=== PATIENT | female | born 2000 | race Caucasian/White ===

== ENCOUNTER → 2023-05-24 07:36 | Outpatient (REF) | payer OTHER, SELFPAY | LOC: EMG 07:36 | PROVIDERS: ATTENDING PHYSICIAN Family Medicine | DX: R20.2 Paresthesia of skin (principal) | CPT/HCPCS: 95886; 95911 ==

== ENCOUNTER 2023-06-02 16:11 | Emergency (ER) | payer OTHER, SELFPAY ==
[2023-06-02 16:13] VITALS: BP 132/81
[2023-06-02 16:35] LABS: % Basophils 0.6 % (0-2); % Eosinophils 1.2 % (0-6); % Immature Granulocytes 0.3 % (0-0.5); % Lymphocytes 36.5 % (20.5-51.1); % Monocytes 4.8 % (1.7-9.3); % Neutrophils 56.6 % (42.2-75.2); Absolute Basophils 0.1 10^3/uL (0-0.2); Absolute Eosinophils 0.1 10^3/uL (0-0.7); Absolute Lymphocytes 3.8 10^3/uL (1.2-3.4); Absolute Monocytes 0.5 10^3/uL (0.1-0.6); Absolute Neutrophils 5.9 10^3/uL (1.4-6.5); Hematocrit 38.2 % (37.0-47.0); Hemoglobin 12.8 g/dL (12.0-16.0); Mean Corp Hgb Conc. 33.5 g/dL (33.0-37.0); Mean Corpuscular Hgb 29.6 pg (27.0-31.0); Mean Corpuscular Volume 88.2 fL (81.0-99.0); Mean Platelet Volume 9.8 fL (7.4-10.4); Nucleated Red Blood Cells % 0 %; Platelet Count 334 10^3/uL (130-400); Red Blood Cell Count 4.33 10^6/uL (4.20-5.40); White Blood Cell Count 10.3 10^3/uL (4.8-10.8)
[2023-06-02 16:53] LABS: HCG, Serum Qualitative Screen Negative
[2023-06-02 16:58] LABS: ALT (SGPT) 14 U/L (0-35); AST (SGOT) 21 U/L (14-36); Alkaline Phosphatase 58 U/L (38-126); Blood Urea Nitrogen 13 mg/dl (7-17); Calcium 9.8 mg/dl (8.4-10.2); Carbon Dioxide 25 mmol/L (22-30); Chloride 104 mmol/L (98-107); Glucose 92 mg/dl (70-99); Potassium 4.4 mmol/L (3.5-5.1); Sodium 137 mmol/L (135-145); Total Bilirubin 0.5 mg/dl (0.2-1.3); Total Protein 7.7 g/dl (6.3-8.2); eGFR > 60.00
[2023-06-02 17:00] LABS: Troponin I < 0.012 ng/ml
[2023-06-02 18:00] VITALS: BP 129/81
--- NOTE | 2023-06-02 18:13 | ED.GENMED ---
History of Present Illness
General
Chief Complaint: Chest Pain
Time Seen by Provider: 06/02/23 18:00
Travel History
Have you had any contact with someone who has COVID-19?: No
Do you have any symptoms of coronavirus? Fever > 100 degrees, chills, cough, shortness of breath, sore throat, loss of taste or smell, muscle aches, or headache?: No
History of Present Illness
History of Present Illness:
23-year-old female with no significant past medical history presents to the emergency department for evaluation of chest discomfort for the past 3 to 4 days. Pain is nonpleuritic and nonpositional. Seems to be constant throughout the day. Pain is
nonradiating and centrally located. She does note that she had a viral URI 1 week ago. Also notes that she has had ongoing numbness of the hands and feet for the past month, did undergo an upper extremity EMG last week that was reportedly normal
and is scheduled for a brain MRI next month. She denies any leg swelling. Does not take any exogenous estrogen and denies any recent surgeries or prolonged immobilization/travel.
Review of Systems
Review of Systems
Allergies reviewed?: Yes
All Other Systems: ROS reviewed and negative except as documented in HPI and ROS
Phy Exam
Physical Exam
Physical Exam:
GEN: Well appearing, NAD, WDWN
HEENT: Oral mucosa moist, no scleral icterus, no nasal congestion
Cardiac: Regular rate and rhythm, no murmurs
Lung: No respiratory distress, no tachypnea, lungs clear to auscultation bilaterally
MSK: No gross deformity or injuries
Skin: Good color, no pallor or jaundice, no rashes
Neuro: AO x3, CN II-XII grossly intact. Visual childress intact x 4 bilat. No limb drift x 4. No limb ataxia x 4. No aphasia or dysarthria. Sensation intact x 4 extremities
Psych: Calm, cooperative
Scores
Heart Score for Chest Pain Patients
STEMI patient?: No
History: Slightly or Non-Suspicious
ECG: Normal
Age: </= 45 years
Risk Factors: No Risk Factors
Troponin: </= Normal Limit
Heart Score for Chest Pain Patients: 0
Heart Score Risk: 2.5% MACE over next 6 weeks
Course
Orders/Labs/Results
Orders:
Orders
06/02/23 16:13
Test Result ONCE
06/02/23 16:14
Electrocardiogram (*1) Urgent
Reason for Study: Chest Pain
EKG- Treatment ONCE
06/02/23 16:21
Complete Blood Count/With Diff Urgent
Comprehensive Metabolic Panel Urgent
HCG, Serum Qualitative Screen Urgent
Troponin I Urgent
Abnormal Lab Results
06/02/23
16:21
Absolute Lymphs (auto) 3.8 H 10^3/uL
(1.2-3.4)
Creatinine 0.5 L mg/dL
(0.6-1.0)
06/02/23 16:21
06/02/23 16:21
Vital Signs
Initial and Last Documented VS:
Initial Vital Signs
Temp Pulse Resp BP Pulse Ox
97.7 F 76 18 132/81 99
06/02/23 16:13 06/02/23 16:13 06/02/23 16:13 06/02/23 16:13 06/02/23 16:13
Last Documented Vital Signs
Temp Pulse Resp BP Pulse Ox
97.7 F 84 20 129/81 99
06/02/23 16:13 06/02/23 18:00 06/02/23 18:00 06/02/23 18:00 06/02/23 18:00
MDM/Problems Addressed
MDM/Problems Addressed:
Low suspicion for ACS given age and lack of risk factors. PE rule out criteria. Labs are reassuring, negative troponin is reassuring against postviral myocarditis. No positional pleuritic nature to suggest pericarditis. Psychosomatic versus
costochondritis in the setting of a recent URI, will start high-dose NSAIDs and recommend outpatient primary care follow-up
Comment
Comment:
EKG independently interpreted by me shows a normal sinus rhythm at a rate of [address] changes concerning for ischemia, QTc of 407
*Critical Care Note
Total Time (30-74mins, 75-104mins- exclusive of procedures): Not Applicable
ED Attending Note
-
Portions of this chart may have been created with voice recognition software.� Occasional wrong word or��sound alike� substitutions may have occurred due to the inherent limitations of voice recognition software.
Discharge Plan
Departure
Patient Disposition: Home (Routine Discharge)
Date of Disposition: 06/02/23
Time of Disposition: 18:15
Patient with high blood pressure during this ER visit?: No
Discharge Problem:
Atypical chest pain
Instructions: Chest Pain That Is Not Caused by the Heart (DC), Costochondritis (DC)
Prescriptions:
New
diclofenac sodium 75 mg tablet,delayed release (DR/EC)
75 mg PO BID Qty: 20 0RF
No Action
cephalexin 500 mg capsule
500 mg PO TID 7 Days Qty: 21 0RF
Referrals:
Jaret Ley DO [Family Provider] -
Interventions
Interventions:
*Risk Screen - Suicide Last Done: 06/02/23 16:13
*General Assessment Last Done: 06/02/23 16:13
*Neglect/Abuse Screening Last Done: 06/02/23 16:13
*ED COVID-19 Vaccine History Last Done: 06/02/23 16:13
*Nursing Disposition Last Done: 06/02/23 18:28
ED- Cardiac Assessment Last Done: 06/02/23 18:00
Discharge Date and Time
Discharge Date/Time: 06/02/23 18:28
Print Language: ITALIAN
== END 2023-06-02 18:28 | disposition home or self-care (01) ==
LOC: EMR 16:11
PROVIDERS: EMERGENCY PHYSICIAN Student in an Organized Health Care Education/Training Program; FAMILY PHYSICIAN Family Medicine
DX: R07.89 Other chest pain (principal); R20.0 Anesthesia of skin
CPT/HCPCS: 99284; 80053; 84484; 84703; 85025; 93005

== ENCOUNTER → 2023-06-06 07:36 | Outpatient (REF) | payer OTHER, SELFPAY | LOC: EMG 07:36 | PROVIDERS: ATTENDING PHYSICIAN Family Medicine | DX: R20.0 Anesthesia of skin (principal) | CPT/HCPCS: 95886; 95910 ==

== ENCOUNTER → 2023-06-16 19:24 | Outpatient (REF) | payer OTHER, SELFPAY | LOC: MRI 19:24 | PROVIDERS: ATTENDING PHYSICIAN Family Medicine | DX: R20.2 Paresthesia of skin (principal) | CPT/HCPCS: 70553; A9575 ==

== ENCOUNTER 2023-07-13 07:48 | Outpatient (RCR) | payer OTHER, SELFPAY ==
[2023-06-22 07:50] VITALS: BP 105/65
[2023-06-22] MEDS: VENOFER 110 MG IV (08:05)
[2023-06-22 09:13] VITALS: BP 117/63
[2023-06-29 13:51] VITALS: BP 114/70
[2023-06-29] MEDS: VENOFER 110 MG IV (14:03)
[2023-06-29 15:16] VITALS: BP 116/68
[2023-07-03 08:10] VITALS: BP 108/70
[2023-07-03] MEDS: VENOFER 110 MG IV (08:19)
[2023-07-03 09:30] VITALS: BP 118/63
[2023-07-13] MEDS: VENOFER 110 MG IV (08:25)
[2023-07-13 08:29] VITALS: BP 106/67
[2023-07-13 09:50] VITALS: BP 113/66
== END 2023-07-14 08:46 | disposition home or self-care (01) ==
LOC: OID 07:48
PROVIDERS: ATTENDING PHYSICIAN Nurse Practitioner Family; FAMILY PHYSICIAN Family Medicine
DX: D50.9 Iron deficiency anemia, unspecified (principal); E61.1 Iron deficiency; R20.2 Paresthesia of skin; Z87.820 Personal history of traumatic brain injury
CPT/HCPCS: 96365; J1756

== ENCOUNTER 2023-07-17 07:43 | Outpatient (RCR) | payer OTHER, SELFPAY ==
[2023-07-17] MEDS: VENOFER 110 MG IV (08:16)
[2023-07-17 08:22] VITALS: BP 107/62
[2023-07-17 09:30] VITALS: BP 96/65
== END 2023-07-18 08:22 | disposition home or self-care (01) ==
LOC: OID 07:43
PROVIDERS: ATTENDING PHYSICIAN Nurse Practitioner Family; FAMILY PHYSICIAN Family Medicine
DX: D50.9 Iron deficiency anemia, unspecified (principal); E61.1 Iron deficiency; R20.2 Paresthesia of skin; Z87.820 Personal history of traumatic brain injury
CPT/HCPCS: 96365; J1756

== ENCOUNTER → 2023-08-14 08:05 | Outpatient (REF) | payer OTHER, SELFPAY | LOC: RCS 08:05 | PROVIDERS: ATTENDING PHYSICIAN Internal Medicine Cardiovascular Disease; FAMILY PHYSICIAN Family Medicine | DX: R07.89 Other chest pain (principal) | CPT/HCPCS: 93306 ==

== ENCOUNTER 2023-09-19 10:42 | Emergency (ER) | payer OTHER, SELFPAY ==
[2023-09-19 10:58] VITALS: BP 116/80
[2023-09-19 12:05] VITALS: BP 106/69
[2023-09-19] MEDS: NSS 1000 IV (12:15)
[2023-09-19 12:18] VITALS: BMI 27.7
--- NOTE | 2023-09-19 12:22 | ED.GENMED ---
History of Present Illness
General
Chief Complaint: Abdominal Pain
Source: patient
Exam Limitations: none
Time Seen by Provider: 09/19/23 11:32
Nursing documentation reviewed up to this point in time: agreed with
History of Present Illness
History of Present Illness:
Patient is a 23-year-old female who presents to the ER for right-sided abdominal pain. She has had intermittent right-sided abdominal pain for the past 1 month. She was seen by her family doctor today who was concerned about appendicitis and sent
here for CAT scan. She reports she has had issues with her stomach for the past 7 months including mucousy stools. For this she has an appointment with GI at the end of the month(Oct 09)
She denies any fever or chills. She has had nausea with this right-sided abdominal pain. She also has had some issues with constipation
Review of Systems
Review of Systems
Allergies reviewed?: Yes
All Other Systems: ROS reviewed and negative except as documented in HPI and ROS
Constitutional: Reports no symptoms; Denies fever, fatigue or chills
Cardiac: Reports no symptoms
ABD/GI: Reports abdominal pain, nausea and other (Mucousy stools for past 7 months )
Skin: Reports no symptoms
Neurological: Reports no symptoms
Psychiatric: Reports no symptoms
Phy Exam
General Physical Exam
General Presentation: no apparent distress
General age: appears stated age
General Skin: warm and dry
General Habitus: normal
General Mental: alert
General Hydration: appears well hydrated
Gastrointestinal Exam
Gastrointestinal Exam: soft and other (Mild right-sided upper mid and lower tenderness no guarding/ rebound)
Neurological Exam
Neurological Exam: alert and oriented x3
Musculoskeletal Exam
Musculoskeletal Exam: full ROM
Skin Exam
Skin Exam: normal color and warm/dry
Psychiatric Exam
Psychiatric Exam: normal mood/affect
Course
Orders/Labs/Results
Orders:
Orders
09/19/23 12:06
IV Insert/Care/Rem.- Treatment PRN
0.9% Sodium Chloride 1000 ml [Nss] 1,000 ml IV BOLUS
09/19/23 12:07
Test Result ONCE
09/19/23 12:08
CT Abd/Pel (IV only)-DH only Urgent
Comment:
Reason For Exam: r sided abd pain
09/19/23 12:14
Complete Blood Count/With Diff Urgent
Comprehensive Metabolic Panel Urgent
HCG, Serum Qualitative Screen Urgent
Lipase Urgent
09/19/23 14:40
US Pelvis Only (non-obstetric) Urgent
Comment:
Reason For Exam: rlq pain
09/19/23 14:56
Urinalysis Reflex To Culture Urgent
Date Specimen was Collected: 09/19/23
Time Specimen was Collected: 14:55
Abnormal Lab Results
09/19/23
12:14
RBC 4.05 L 10^6/uL
(4.20-5.40)
Hct 34.2 L %
(37.0-47.0)
Chloride 110 H mmol/L
(98-107)
Carbon Dioxide 17 L mmol/L
(22-30)
09/19/23 12:14
09/19/23 12:14
Vital Signs
Initial and Last Documented VS:
Initial Vital Signs
Temp Pulse Resp BP Pulse Ox
98.9 F 79 18 116/80 96
09/19/23 10:58 09/19/23 10:58 09/19/23 10:58 09/19/23 10:58 09/19/23 10:58
Last Documented Vital Signs
Temp Pulse Resp BP Pulse Ox
98.9 F 65 16 107/67 98
09/19/23 10:58 09/19/23 14:32 09/19/23 14:32 09/19/23 14:32 09/19/23 14:32
MDM/Problems Addressed
Differential Diagnosis Includes:
Not limited to biliary colic, constipation, less likely appendicitis ovarian cyst
MDM/Problems Addressed:
Patient is a 23-year-old female who was sent by her family doctor for evaluation of right side abdominal pain right lower quadrant rule out appendicitis. Patient had issues with right-sided abdominal pain for the past 1 month. She does have some
intermittent constipation and also for the past 7 months has had issues with mucousy stools. For this she does have a GI appointment scheduled October 09 patient. Patient presents awake alert no acute distress denies any fever she is afebrile with
a stable hemoglobin normal labs including normal chemistries normal lipase. No UTI symptoms. UA negative normal LFTs
CAT scan of the abdomen shows small amount of fluid in the pelvis of uncertain etiology and ovarian cyst cannot be excluded although findings are consistent with constipation. Ultrasound was done which does show free fluid in the pelvis likely
related to recently ruptured cyst that is otherwise unremarkable with no mass or fluid collection. No acute abnormality with gallbladder
Patient has appointment with GI coming up October 09 I discussed constipation and results of imaging including likely recent ovarian cyst discussed follow-up with GI as scheduled family doctor or [facility] as needed patient no acute distress nontoxic looks
well stable for discharge home.
*Radiology
Radiology exam reviewed: radiology read reviewed (Resolvent of fluid in the pelvis of uncertain etiology, much stool in the colon suggesting constipation)
*Critical Care Note
Total Time (30-74mins, 75-104mins- exclusive of procedures): Not Applicable
ED Attending Note
-
Portions of this chart may have been created with voice recognition software.� Occasional wrong word or��sound alike� substitutions may have occurred due to the inherent limitations of voice recognition software.
Discharge Plan
Departure
Patient Disposition: Home (Routine Discharge)
Date of Disposition: 09/19/23
Time of Disposition: 16:05
Patient with high blood pressure during this ER visit?: No
Condition: Fair
Covid-19: Not Applicable
Discharge Problem:
Constipation
Instructions: Constipation, Adult (DC), Abdominal Pain
Prescriptions:
No Action
lamotrigine 25 mg Tablet
75 mg PO BID
ascorbic acid (vitamin C) [Vitamin C] 500 mg Tablet
500 mg PO DAILY
rizatriptan 10 mg Tablet,Disintegrating
0 mg PO .COMPLEX
Rx Instructions:
take 1 tab at onset of headache; if no relief may repeat 1 tab after at least 2 hrs; max = 3 tabs/24 hr
topiramate 50 mg Tablet
50 mg PO BID
Referrals:
Jaret Ley DO [Family Provider] -
Activity Restrictions/Additional Instructions:
As discussed your CAT scan shows constipation you may take MiraLAX daily be sure to increase water intake and fresh fruits high in fiber.
Your ultrasound shows findings consistent with recently ruptured cyst. Follow-up with your family doctor in the next several days and GI specialist as scheduled. Also follow-up with gynecology as needed. Return if any worsening of symptoms
Interventions
Interventions:
*Risk Screen - Suicide Last Done: 09/19/23 10:59
*General Assessment Last Done: 09/19/23 10:59
*Neglect/Abuse Screening Last Done: 09/19/23 10:59
ED- Fall Risk Assessment Last Done: 09/19/23 12:19
*ED COVID-19 Vaccine History Last Done: 09/19/23 11:23
AS-Kahvyp-Ffxyzicntn Assessment Last Done: 09/19/23 12:18
Discharge Date and Time
Print Language: PAKISTANI
[2023-09-19 12:28] LABS: % Basophils 0.7 % (0-2); % Eosinophils 1.1 % (0-6); % Immature Granulocytes 0.2 % (0-0.5); % Lymphocytes 33.7 % (20.5-51.1); % Monocytes 5.1 % (1.7-9.3); % Neutrophils 59.2 % (42.2-75.2); Absolute Basophils 0.1 10^3/uL (0-0.2); Absolute Eosinophils 0.1 10^3/uL (0-0.7); Absolute Lymphocytes 2.7 10^3/uL (1.2-3.4); Absolute Monocytes 0.4 10^3/uL (0.1-0.6); Absolute Neutrophils 4.8 10^3/uL (1.4-6.5); Hematocrit 34.2 % (37.0-47.0); Hemoglobin 12.1 g/dL (12.0-16.0); Mean Corp Hgb Conc. 35.4 g/dL (33.0-37.0); Mean Corpuscular Hgb 29.9 pg (27.0-31.0); Mean Corpuscular Volume 84.4 fL (81.0-99.0); Mean Platelet Volume 10.1 fL (7.4-10.4); Nucleated Red Blood Cells % 0 %; Platelet Count 266 10^3/uL (130-400); Red Blood Cell Count 4.05 10^6/uL (4.20-5.40); Red Cell Dist. Width 12.7 % (11.5-14.5)
[2023-09-19 12:45] LABS: HCG, Serum Qualitative Screen Negative
[2023-09-19 12:49] LABS: ALT (SGPT) 10 U/L (0-35); AST (SGOT) 15 U/L (14-36); Albumin 4.6 g/dl (3.5-5.0); Alkaline Phosphatase 63 U/L (38-126); Blood Urea Nitrogen 13 mg/dl (7-17); Calcium 9.6 mg/dl (8.4-10.2); Carbon Dioxide 17 mmol/L (22-30); Chloride 110 mmol/L (98-107); Estimated Creatinine Clearance 121 ml/min; Glucose 98 mg/dl (70-99); Lipase 79 U/L (23-300); Potassium 4.1 mmol/L (3.5-5.1); Sodium 138 mmol/L (135-145); Total Bilirubin 0.4 mg/dl (0.2-1.3); Total Protein 6.8 g/dl (6.3-8.2); eGFR > 60.00
[2023-09-19 14:32] VITALS: BP 107/67
[2023-09-19 15:16] LABS: Urine Albumin Negative (Neg - Trace); Urine Bilirubin Negative (Negative); Urine Character Clear (Clear); Urine Color Yellow; Urine Glucose Negative (Negative); Urine Ketone Negative (Negative); Urine Leukocyte Negative (Negative); Urine Nitrite Negative (Negative); Urine Occult Blood Negative (Negative); Urine Specific Gravity 1.015 (<1.030); Urine Urobilinogen Negative (Neg - 1+)
== END 2023-09-19 16:18 | disposition home or self-care (01) ==
LOC: EMR 10:42
PROVIDERS: Nurse Practitioner; EMERGENCY PHYSICIAN Emergency Medicine; FAMILY PHYSICIAN Family Medicine
DX: K59.00 Constipation, unspecified (principal)
CPT/HCPCS: 99285; 96360; 96361; 74177; 76856; 80053; 81003; 83690; 84703; 85025; Q9967

== ENCOUNTER → 2023-10-27 16:23 | Outpatient (REF) | payer OTHER, SELFPAY | LOC: RAD 16:23 | PROVIDERS: ATTENDING PHYSICIAN Nurse Practitioner Family | DX: N92.1 Excessive and frequent menstruation with irregular cycle (principal) | CPT/HCPCS: 76830 ==

== ENCOUNTER → 2023-11-01 18:02 | Outpatient (REF) | payer OTHER, SELFPAY | LOC: MRI 18:02 | PROVIDERS: ATTENDING PHYSICIAN Psychiatry & Neurology Neurology; FAMILY PHYSICIAN Family Medicine | DX: R20.9 Unspecified disturbances of skin sensation (principal) | CPT/HCPCS: 72156; A9575 ==

== ENCOUNTER → 2023-12-13 06:15 | Day surgery (SDC) | payer OTHER, SELFPAY | LOC: GI 06:15 | PROVIDERS: ATTENDING PHYSICIAN Internal Medicine | DX: R10.84 Generalized abdominal pain (principal); K92.1 Melena | CPT/HCPCS: 45378 ==

== ENCOUNTER → 2024-03-18 14:57 | Outpatient (REF) | payer OTHER, SELFPAY | LOC: EMG 14:57 | PROVIDERS: ATTENDING PHYSICIAN Family Medicine | DX: R20.2 Paresthesia of skin (principal) | CPT/HCPCS: 95886; 95911 ==

== ENCOUNTER → 2025-01-02 15:18 | Outpatient (REF) | payer OTHER, SELFPAY | LOC: RAD 15:18 | PROVIDERS: ATTENDING PHYSICIAN Nurse Practitioner Family | DX: R06.02 Shortness of breath (principal) | CPT/HCPCS: 71046 ==

== ENCOUNTER → 2025-01-07 17:26 | Outpatient (REF) | payer OTHER, SELFPAY ==
[2025-01-07 17:56] LABS: D-Dimer 0.83 ug/mlFEU (0.00-0.50)
== END ==
LOC: REG 17:26
PROVIDERS: ATTENDING PHYSICIAN Nurse Practitioner Family
DX: R06.02 Shortness of breath (principal)
CPT/HCPCS: 36415; 85379

== ENCOUNTER → 2025-01-10 16:51 | Outpatient (REF) | payer OTHER, SELFPAY | LOC: RAD 16:51 | PROVIDERS: ATTENDING PHYSICIAN Nurse Practitioner Family; FAMILY PHYSICIAN Family Medicine | DX: R79.89 Other specified abnormal findings of blood chemistry (principal) | CPT/HCPCS: 71275; Q9967 ==